=== PATIENT | female | born 1990 ===

== ENCOUNTER 2018-05-16 11:40 | Emergency (ER) | payer OTHER ==
[2018-05-16 11:47] VITALS: RESP 16; BMI 25.4
--- NOTE | 2018-05-16 12:32 | ED PDOC ---
HPI: Abdomen Time Seen by Provider: 05/16/18 11:48 Chief Complaint (Nursing): Abdominal Pain Chief Complaint (Provider): Pelvic pain, discharge in prengnacy History Per: Patient History/Exam Limitations: no limitations Onset/Duration Of Symptoms: Days Outside of [place] travel?: No Additional Complaint(s): 27 yo presents at 10 weeks gestation, no care so far, for evaluation of left sided pelvic pain and discharge for 1 week. PT states she has not called her OB for appointment yet. Pt states she has spotting 2 days ago. Pt reports pain with intercourse. Pt has gotten Rhogam in the past. Pt states she has one partner however he has cheated on her in the past. Past Medical History Reviewed: Historical Data, Nursing Documentation, Vital Signs Vital Signs: Last Vital Signs Temp 98.7 F 05/16/18 16:38 Pulse 92 H 05/16/18 16:38 Resp 16 05/16/18 16:38 BP 108/72 05/16/18 16:38 Pulse Ox 100 05/16/18 16:27 - Medical History PMH: No Chronic Diseases - Surgical History Surgical History: - Family History Family History: States: Unknown Family Hx - Living Arrangements Living Arrangements: With Family - Social History Current smoker - smoking cessation education provided: No Alcohol: None Drugs: Denies - Immunization History Hx Tetanus Toxoid Vaccination: Yes Hx Influenza Vaccination: No Hx Pneumococcal Vaccination: No - Home Medications Home Medications: Ambulatory Orders Medication Instructions Recorded Naproxen [Naprosyn] 1 tab PO BID PRN #25 tab 12/20/14 Ciprofloxacin HCl [Cipro] 250 mg PO BID #6 tab 06/22/15 Miconazole 2% Vaginal [Monistat 7 1 applic VG HS #7 tube 06/22/15 Vaginal Cream] Miconazole Nitrate [Monistat 7] 100 mg VG DAILY #1 sup 07/13/15 - Allergies Allergies/Adverse Reactions: Allergies Allergy/AdvReac Type Severity Reaction Status Date / Time No Known Allergies Allergy Verified 06/22/15 15:13 Review of Systems ROS Statement: Except As Marked, All Systems Reviewed And Found Negative Constitutional: Negative for: Fever, Chills Gastrointestinal: Negative for: Nausea Genitourinary Female: Positive for: Vaginal Discharge, Pelvic Pain Physical Exam - Reviewed Nursing Documentation Reviewed: Yes Vital Signs Reviewed: Yes - Physical Exam Appears: Positive for: Well, Non-toxic, No Acute Distress Head Exam: Positive for: ATRAUMATIC, NORMAL INSPECTION, NORMOCEPHALIC Skin: Positive for: Normal Color, Warm, DRY Eye Exam: Positive for: Normal appearance ENT: Positive for: Normal ENT Inspection Neck: Positive for: Normal, Painless ROM Cardiovascular/Chest: Positive for: Regular Rate, Rhythm Respiratory: Positive for: Normal Breath Sounds. Negative for: Accessory Muscle Use, Respiratory Distress Gastrointestinal/Abdominal: Positive for: Normal Exam, Soft. Negative for: Tenderness Pelvic Exam: Positive for: External Exam Normal, Speculum Exam Normal, Discharge , Tender W/Cervical Motion. Negative for: Bimanual Exam Normal, Tender Adnexa, Tender Uterus Back: Positive for: Normal Inspection Extremity: Positive for: Normal ROM Neurologic/Psych: Positive for: Alert, Oriented - Laboratory Results Result Diagrams: 05/16/18 12:45 05/16/18 12:45 - ECG O2 Sat by Pulse Oximetry: 99 Medical Decision Making Medical Decision Making: Normal WBC Will treat for STD. US (+) movement, (+) FHT Disposition - Clinical Impression Clinical Impression: Abdominal pain during , Concern about STD in female without diagnosis - Patient ED Disposition Is Patient to be Admitted: No - Disposition Referrals: Maximo Beatty MD [Primary Care Provider] - Disposition: Routine/Home Disposition Time: 16:59 Condition: GOOD Additional Instructions: Please make an appointment with OB in 2-3 days. Instructions: Screenings Forms: [employer] (Polish)
[2018-05-16 13:26] LABS: HEMOGLOBIN 13.2 g/dL (12.0-16.0); MEAN CELL VOLUME 93.5 fl (81.0-99.0); MEAN CORPUSCULAR HEMOGLOBIN 33.4 pg (27.0-31.0); MEAN CORPUSCULAR HGB CONC 35.7 g/dL (33.0-37.0); RBC 3.95 Mil/uL (3.80-5.20); RED CELL DISTRIBUTION WIDTH 12.2 % (11.5-14.5); WHITE BLOOD COUNT 5.4 K/uL (4.8-10.8)
[2018-05-16 13:38] LABS: ALB/GLOB RATIO 1.4 (1.0-2.1); ALBUMIN 4.1 g/dL (3.5-5.0); ALT/SGPT 23 U/L (9-52); AST/SGOT 24 U/L (14-36); BLOOD UREA NITROGEN 7 mg/dl (7-17); CALCIUM 9.1 mg/dL (8.4-10.2); GFR NON-AFRICAN AMERICAN > 60
[2018-05-16] MEDS ORDERED: cefTRIAXone (Rocephin) 250 mg Inj IM STA (14:35)
[2018-05-16] MEDS ORDERED: cefTRIAXone (Rocephin) 250 mg Inj ONE (14:45)
[2018-05-16 16:28] VITALS: BP 108/72; PULSE 92; TEMP 98.7
[2018-05-16 16:58] VITALS: O2SAT 99
--- NOTE | 2018-05-17 10:17 | US ---
Date of service: 05/16/18 Indication: Vaginal bleeding in Comparison: Transvaginal ultrasound performed 07/13/15 Technique: OB , limited Findings: There is a single intrauterine fetus present in variable presentation. Posterior placenta. Fetus has a composite sonographic age of 13 weeks 5 days. This calculation is based on the biparietal diameter, head circumference, abdominal circumference, and femur length. There is heart motion which measured 158 BPM. The right ovary measures 2.6 x 1.2 x 2.0. The left ovary measures 2.7 x 1.8 x 2.6. Blood flow was demonstrated to both ovaries. Impression: Live single intrauterine with estimated gestational age 13 weeks 5 days. heart rate 158 bpm. Advise an anomaly screen at 16-18 weeks gestational age Preliminary impression was provided by virtual radiologic.
== END 2018-05-16 17:27 | disposition home or self-care (01) ==
LOC: SUPCPDRO 11:40 → H.ER 11:40
DX: O26.899 Other specified pregnancy related conditions, unspecified trimester (principal); Z3A.13 13 weeks gestation of pregnancy; Z11.3 Encounter for screening for infections with a predominantly sexual mode of transmission
CPT/HCPCS: 76815; 80053; 81025; 84702; 85027; 86850; 86900; 87070; 87491; 87591; 96372; 99283; J0696; J2792